=== PATIENT | male | born 1945 | race Caucasian/White ===

== ENCOUNTER 2016-06-12 07:57 | Day surgery (SDC) | payer MEDICARE, BC ==
[2016-06-12] MEDS ORDERED: Lactated Ringers 1,000 ML IV SCH (08:15)
[2016-06-12] MEDS ORDERED: Lidocaine 2% 100 MG/5 ML Syringe IVPUSH ONE (10:00)
[2016-06-12] MEDS ORDERED: Midazolam 1 MG/ML 2 ML SDV IV ONE (10:00)
[2016-06-12] MEDS ORDERED: Propofol 200 MG/20 ML SDV IV ONE (10:00)
--- NOTE | 2016-06-12 10:19 | PCM.OPNOTE ---
- General Post-Op/Procedure Note Date of Surgery/Procedure: 06/12/16 Operative Procedure(s): egd with bx Findings: gastroduodenitis hiatal hernia esophagitis Pre Op Diagnosis: sx gerd Post-Op Diagnosis: gastroduodenitis. hiatal hernia. esophagitis Anesthesia Technique: MAC Primary Surgeon: Kirby Boyle Anesthesia Provider: Alen Mcwilliams Pathology: stomach duodenum distal esophagus Complications: None Condition: Good
[2016-06-12 11:01] VITALS: BP 100/64
--- NOTE | 2016-06-12 17:45 | OR ---
DATE OF OPERATION: 06/12/2016 SURGEON: Kirby Boyle MD PROCEDURE PERFORMED: Esophagogastroduodenoscopy with cold forceps biopsy. PREOPERATIVE DIAGNOSIS: Symptomatic gastroesophageal reflux disease. POSTOPERATIVE DIAGNOSIS: Gastroduodenitis, hiatal hernia, and esophagitis. INDICATIONS FOR PROCEDURE: This is a 70-year-old white male with a longstanding history of gastroesophageal reflux disease. He has been having some worsening of symptoms. He was offered and accepted to repeat an upper endoscopy. DESCRIPTION OF PROCEDURE: After an excellent IV sedation was administered, the bite block was inserted. The flexible endoscope was passed without difficulty down the patient's esophagus into the stomach. The stomach was insufflated. The scope was passed through the pylorus to the second portion of the duodenum and slowly withdrawn. The following findings were noted: First portion of the duodenum demonstrated some mild duodenitis. Multiple biopsies were taken. Stomach diffuse gastritis. Biopsies were taken. A hiatal hernia was also noted. The GE junction was at 30 cm. There was evidence of some esophagitis in the esophageal portion and biopsies were taken of this area as well. The remainder of the esophageal exam was unremarkable. The stomach was deflated. The scope was removed. The patient tolerated the procedure well and was taken to recovery room in good condition. /[id number] TEENA/JANET
--- NOTE | 2016-06-18 11:18 | PCM.SN ---
- Free Text/Narrative Note: Late Entry: 06/12/2016 0955 As documented on anesthesia record, patient did receive Lidocaine 2% IV- the amount was 60 mg.
== END 2016-06-12 11:50 | disposition home or self-care (01) ==
LOC: FB.SDS 07:57
PROVIDERS: ATTEND Surgery
DX: K29.80 Duodenitis without bleeding (principal); K44.9 Diaphragmatic hernia without obstruction or gangrene; K20.8 Other esophagitis; K21.0 Gastro-esophageal reflux disease with esophagitis; E78.5 Hyperlipidemia, unspecified; G47.419 Narcolepsy without cataplexy; D64.9 Anemia, unspecified; R51 Headache; R53.81 Other malaise; R63.4 Abnormal weight loss; Z79.899 Other long term (current) drug therapy; Z79.82 Long term (current) use of aspirin; Z88.0 Allergy status to penicillin
CPT/HCPCS: 00740; 43239; 88305; 88342; J2250; J2704; J7120

== ENCOUNTER 2020-06-01 08:13 | Day surgery (SDC) | payer MEDICARE, BC ==
[2020-06-01] MEDS ORDERED: Lidocaine 1% PF 2 ML SDV INJECT ONE (08:14)
[2020-06-01] MEDS ORDERED: Propofol 200 MG/20 ML SDV IV ONE (08:14)
[2020-06-01] MEDS ORDERED: Sodium Chloride 0.9% 10 ML Syringe FLUSH PRN (08:30)
[2020-06-01] MEDS ORDERED: Lactated Ringers 1,000 ML IV SCH (08:30)
--- NOTE | 2020-06-01 10:45 | PCM.OPNOTE ---
- General Post-Op/Procedure Note Date of Surgery/Procedure: 06/01/20 Operative Procedure(s): c scope Findings: diverticulosis Pre Op Diagnosis: screening Post-Op Diagnosis: diverticulosis Anesthesia Technique: MAC Primary Surgeon: Kirby Boyle Anesthesia Provider: Abebe Rizo Pathology: none Complications: None Condition: Good Free Text/Narrative:: see dictation #[id number]
[2020-06-01 11:44] VITALS: BP 126/63; PULSE 67
--- NOTE | 2020-06-01 13:39 | OR ---
DATE OF OPERATION: 06/01/2020 SURGEON: Kirby Boyle MD PROCEDURE PERFORMED: Colonoscopy. PREOPERATIVE DIAGNOSIS: Colon cancer screening. POSTOPERATIVE DIAGNOSIS: Diverticulosis of the colon. INDICATIONS FOR PROCEDURE: This is a 74-year-old white male who presents now for followup C-scope. He was without complaints. DESCRIPTION OF OPERATION: After an excellent IV sedation was administered, digital rectal exam was performed. No marked abnormality was noted. The flexible colonoscope was inserted and advanced to the cecum. Prep was excellent. Following findings were noted. Ascending colon, unremarkable. Transverse colon, occasional diverticula. Descending colon, occasional diverticula. Sigmoid, diverticulosis noted, and rectum and anus unremarkable. The patient tolerated the procedure well, was taken to recovery. RECOMMENDATIONS: Repeat colonoscopy on a p.r.n. basis. /[id number] [id number] /MODL
== END 2020-06-01 12:12 | disposition home or self-care (01) ==
LOC: FB.SDS 08:13
PROVIDERS: ATTEND Surgery
DX: Z12.11 Encounter for screening for malignant neoplasm of colon (principal); K57.30 Diverticulosis of large intestine without perforation or abscess without bleeding; E78.49 Other hyperlipidemia; Z79.899 Other long term (current) drug therapy; Z86.010 Personal history of colon polyps; Z88.0 Allergy status to penicillin; Z88.7 Allergy status to serum and vaccine; Z90.49 Acquired absence of other specified parts of digestive tract; Z98.890 Other specified postprocedural states
CPT/HCPCS: G0105; J2704; J7120; 00811-QZ